=== PATIENT | female | born 1995 | race Two or more races ===

== ENCOUNTER 2017-02-05 10:48 | Emergency (ER) | payer MEDICAID ==
[~2017-02-05] VITALS: Ht 157.5 cm; Wt 74.8 kg
[2017-02-05 10:58] VITALS: BP 107/49
[2017-02-05 11:32] LABS: Basophils # (auto) 0 uL; CONDITION Y; Eosinophils # (auto) 0 uL; Eosinophils % (auto) 0.3 % (0.0-7.0); Hematocrit 42.9 % (36.0-46.0); Hemoglobin 14.2 g/dL (12.2-16.2); Lymphocytes % (auto) 13.2 % (10.0-50.0); Mean Corpuscular Hemoglobin 28.5 pg (28.0-32.0); Mean Corpuscular Hgb Conc. 33.1 g/dL (32.0-36.0); Mean Corpuscular Volume 86.2 fL (80.0-100.0); Mean Platelet Volume 9.2 fL (7.4-10.4); Monocytes # (auto) 0.3 uL; Monocytes % (auto) 2.1 % (0.0-12.0); Neutrophils # (auto) 13.1 uL; Neutrophils % (auto) 84.4 % (37.0-80.0); Platelet Count (auto) 315 10^3/uL (140-450); Red Cell Distribution Width 15.7 % (11.6-16.0); White Blood Cell 15.5 10^3/uL (4.4-10.8)
[2017-02-05 11:53] LABS: Urine Bilirubin Negative (Negative); Urine Blood 1+ /uL (Negative); Urine Color Yellow (Yellow); Urine Glucose TRACE mg/dL (Normal); Urine Ketone Negative (Negative); Urine Nitrite Negative (Negative); Urine RBC 2 /hpf (0 - 4); Urine Squamous Epithelial Cell FEW /hpf (<5); Urine Urobilinogen Normal (Negative)
[2017-02-05 12:01] LABS: Albumin 4.2 g/dL (3.4-5.0); BUN/Creatinine Ratio 9.5; Bilirubin, Total 0.4 mg/dL (0.2-1.0); Calcium 8.8 mg/dL (8.5-10.1); Potassium 4.3 mmol/L (3.5-5.1); Total Protein 9.2 g/dL (6.4-8.2)
== END 2017-02-05 12:17 | disposition home or self-care (01) ==
LOC: ER 10:50
DX: J02.9 Acute pharyngitis, unspecified (principal); N39.0 Urinary tract infection, site not specified; Z90.89 Acquired absence of other organs
CPT/HCPCS: 36415; 80053; 81001; 85025; 93005

== ENCOUNTER 2024-02-20 07:39 | Emergency (ER) | payer MEDICAID, OTHER ==
[~2024-02-20] VITALS: Ht 160 cm; Wt 79.3 kg
[2024-02-20 08:23] VITALS: BP 128/84; PULSE 98; RESP 18; TEMP 98.6; O2SAT 98
[2024-02-20] MEDS ORDERED: AZIT500T66 PO (09:13)
[2024-02-20] MEDS ORDERED: IBUP-1454 PO (09:13)
== END 2024-02-20 09:25 | disposition home or self-care (01) ==
LOC: ER 07:39
DX: J03.90 Acute tonsillitis, unspecified (principal); Z86.2 Personal history of diseases of the blood and blood-forming organs and certain disorders involving the immune mechanism; Z98.890 Other specified postprocedural states; Z79.899 Other long term (current) drug therapy

== ENCOUNTER 2025-03-19 08:15 | Emergency (ER) | payer MEDICAID ==
[~2025-03-19] VITALS: Ht 160 cm; Wt 73.5 kg
[~2025-03-19 08:15] MED LIST: AZIT500T66 PO; IBUP-1454 PO
--- NOTE | 2025-03-19 09:02 | ED.PDOC ---
History of Present Illness HPI Comments 30-year-old female presents to the ER with prior medical history anemia: Surgical history of appendectomy, and a chief complaint of nausea and vomiting and diarrhea. She reports on having nausea on Saturday and was able to nasal her food, patient had emesis on Saturday, patient had diarrhea yest , and patient currently feels weak. Denies chills, fever, SOB, CP. No other associated symptoms, modifiers, recent injuries or sick contacts present at this time. Chief Complaint: Nausea/Vomiting Time Seen by MD: 08:45 Primary Care Provider: NONE Reviewed Notes: Nurses Notes, Medications, Allergies Allergies: Coded Allergies: NO KNOWN ALLERGIES (Unverified , 08/22/15) Home Meds Active Scripts Ibuprofen (Ibuprofen) 600 Mg Tab, 1 TAB PO TID, #30 TAB Prov:GARIMA COLE 02/20/24 Azithromycin (Azithromycin) 500 Mg Tab, 1 TAB PO DAILY, #5 TAB Prov:GARIMA COLE 02/20/24 Information Source: Patient Mode of Arrival: Ambulatory Severity: Moderate Timing: Days Duration: Since onset, Days Prehospital treatment: None Past Medical History PAST MEDICAL HISTORY: Anemia Surgical History: Appendectomy, 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: No Pertinent 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 Family History Family History: Reviewed,noncontributory to illness, Unknown Social History Smoker: Unknown Alcohol: Unknown Drugs: Unknown Lives In: Home Constitutional: denies: chills, diaphoresis, fatigue, fever, malaise, sweats, weakness, others EENTM: denies: blurred vision, double vision, ear bleeding, ear discharge, ear drainage, ear pain, ear ringing, eye pain, eye redness, hearing loss, mouth pain, mouth swelling, nasal discharge, nose bleeding, nose congestion, nose pain, photophobia, tearing, throat pain, throat swelling, voice changes, others Respiratory: denies: cough, hemoptysis, orthopnea, SOB at rest, shortness of breath, SOB with excertion, stridor, wheezing, others Cardiovascular: denies: chest pain, dizzy spells, diaphoresis, Dyspnea on exertion, edema, irregular heart beat, left arm pain, lightheadedness, palpitations, PND, syncope, others Gastrointestinal: reports: diarrhea, nausea, vomiting; denies: abdomen distended, abdominal pain, blood streaked bowels, constipated, dysphagia, difficulty swallowing, hematemesis, melena, poor appetite, poor fluid intake, rectal bleeding, rectal pain, others Genitourinary: denies: abnormal vagina bleeding, burning, dyspareunia, dysuria, flank pain, frequency, hematuria, incontinence, pain, , vagina discharge, urgency, others Neurological: denies: dizziness, fainting, headache, left sided numbness, left sided weakness, numbness, paresthesia, pre-existing deficit, right sided numbness, right sided weakness, seizure, speech problems, tingling, tremors, weakness, others Musculoskeletal: denies: back pain, gout, joint pain, joint swelling, muscle pain, muscle stiffness, neck pain, others Integumetry: denies: bruises, change in color, change in hair/nails, dryness, laceration, lesions, lumps, rash, wounds, others Allergic/Immunocompromised: denies: Difficulty Healing, Frequent Infections, Hives, Itching, others Hematologic/Lymphatic: denies: anemia, blood clots, easy bleeding, easy bruising, swollen glands, others Endocrine: denies: excessive hunger, excessive sweating, excessive thirst, excessive urination, flushing, intolerance to cold, intolerance to heat, u nexplained weight gain, unexplained weight loss, others Psychiatric: denies: anxiety, bipolar disorder, depression, hopeless, panic disorder, schizophrenia, sleepless, suicidal, others All Other Systems: Reviewed and Negative Physical Exam Exam Comments Appears uncomfortable General Appearance: No Apparent Distress, Normal HEENT: Normal ENT Inspection, Pharynx Normal, TMs Normal Neck: Full Range of Motion, Non-Tender, Normal, Normal Inspection Respiratory: Chest Non-Tender, Lungs Clear, No Accessory Muscle Use, No Respiratory Distress, Normal Breath Sounds Cardiovascular: No Edema, No JVD, No Murmur, No Gallop, Normal Peripheral Pulses, Regular Rate/Rhythm Breast Exam: Deferred Gastrointestinal: No Organomegaly, Non Tender, No Pulsatile Mass, Normal Bowel Sounds, Soft Genitalia: Deferred Pelvic: Deferred Rectal: Deferred Extremities: No calf tenderness, Normal capillary refill, Normal inspection, Normal range of motion, Non-tender, No pedal edema Musculoskeletal : Apperance: Normal Neurologic: Alert, senior materials planner II-XII nml as Tested, No Motor Deficits, Normal Affect, Normal Mood, No Sensory Deficits Cerebellar Function: Normal Reflexes: Normal Skin: Dry, Normal Color, Warm Lymphatic: No Adenopathy Was a procedure done? Was a procedure done?: No Differential Dx Considerations may include: Gastroenteritis, viral syndrome X-Ray, Labs, Meds, VS Vital Signs Date Time Temp Pulse Resp B/P (MAP) Pulse Ox O2 Delivery O2 Flow Rate FiO2 03/19/25 09:26 98.1 94 17 126/75 (92) 97 98.1 03/19/25 09:24 96 17 97 Room Air* 0 21 03/19/25 08:16 97.8 90 16 123/83 97 97.8 Lab Test 03/19/25 11:00 03/19/25 09:46 03/19/25 09:00 Range/Units Urine Color Light-yellow Yellow Urine Clarity Hazy H Clear Urine pH 5.5 5.0-9.0 Urine Specific [place] 1.013 1.001-1.035 Urine Protein Negative Negative Urine Ketones 1+ H Negative Urine Blood 1+ H Negative /uL Urine Nitrite Negative Negative Urine Bilirubin Negative Negative Urine Urobilinogen Normal Negative mg/dL Urine Leukocyte Esterase Negative Negative /uL Urine RBC 7 0 - 4 /hpf Urine Microscopic WBC 5 0-5 /HPF Urine Squamous Epithelial Cells Few <5 /hpf Urine Bacteria Few H None Seen /hpf Urine Mucus Few None Seen Urine Glucose Normal Normal mg/dL Influenza Type A Antigen Negative Negative Influenza Type B Antigen Negative Negative SARS-CoV-2 Antigen (Rapid) Negative NEGATIVE White Blood Count 11.1 H 4.4-10.8 10^3/uL Red Blood Count 4.67 4.0-5.20 10^6/uL Hemoglobin 13.6 12.2-16.2 g/dL Hematocrit 40.3 36.0-46.0 % Mean Corpuscular Volume 86.4 80.0-100.0 fL Mean Corpuscular Hemoglobin 29.1 28.0-32.0 pg Mean Corpuscular Hemoglobin Concent 33.7 32.0-36.0 g/dL Red Cell Distribution Width 13.9 11.8-14.3 % Platelet Count 308 140-450 10^3/uL Mean Platelet Volume 7.6 6.9-10.8 fL Neutrophils (%) (Auto) 75.0 37.0-80.0 % Lymphocytes (%) (Auto) 16.5 10.0-50.0 % Monocytes (%) (Auto) 6.3 0.0-12.0 % Eosinophils (%) (Auto) 1.8 0.0-7.0 % Basophils (%) (Auto) 0.4 0.0-2.0 % Neutrophils # (Auto) 8.3 1.6-8.6 10 ^3/uL Lymphocytes # (Auto) 1.8 0.4-5.4 10 ^3/uL Monocytes # (Auto) 0.7 0-1.3 10 ^3/uL Eosinophils # (Auto) 0.2 0-0.8 10 ^3/uL Basophils # (Auto) 0 0-0.2 10 ^3/uL Nucleated Red Blood Cells 0.0 % Sodium Level 140 136-145 mmol/L Potassium Level 3.6 3.5-5.1 mmol/L Chloride Level 109 H 98-107 mmol/L Carbon Dioxide Level 25 20-31 mmol/L Anion Gap 6 5-15 Blood Urea Nitrogen 5 L 9-23 mg/dL Creatinine 0.63 0.550-1.02 mg/dL Glomerular Filtration Rate Calc 121 >90 mL/min BUN/Creatinine Ratio 7.9 L 10.0-20.0 Serum Glucose 87 74-106 mg/dL Calcium Level 8.9 8.7-10.4 mg/dL Current Medications Medications (Trade) Dose Ordered Sig/Cecilia Route Start Time Stop Time Status Last Admin Sodium Chloride 1,000 ml @ 1,000 mls/hr Q1H ONCE IV 03/19/25 09:00 03/19/25 09:59 DC 03/19/25 09:38 Ondansetron HCl (Zofran) 4 mg ONCE ONCE IV 03/19/25 09:00 03/19/25 09:01 DC 03/19/25 09:39 Ketorolac Tromethamine (Toradol Injection) 15 mg ONCE ONCE IV 03/19/25 09:00 03/19/25 09:01 DC 03/19/25 09:38 Time of 1ST Reevaluation: 09:15 Reevaluation 1ST: Unchanged Patient Education/Counseling: Diagnosis, Treatment, Prognosis Family Education/Counseling: No Family Present SEPSIS Sepsis Screen Date sepsis recognized/suspect: Mar 19, 2025 Time Sepsis recognized/suspect: 804 Recent Procedure: No On Antibiotic Therapy: No Respiratory Rate >20: No Heart Rate >90: No Temp<36 C (96.8 F) or >38.3 C: No SBP <90 or MAP <65 mmHG: No New Acute Mental Status Change: No Is the patient on CPAP, BIPAP,: No Vital Signs Date Time Temp Pulse Resp B/P (MAP) Pulse Ox O2 Delivery O2 Flow Rate FiO2 03/19/25 09:26 98.1 94 17 126/75 (92) 97 98.1 03/19/25 09:24 96 17 97 Room Air* 0 21 03/19/25 08:16 97.8 90 16 123/83 97 97.8 Laboratory Tests Test 03/19/25 09:00 White Blood Count 11.1 10^3/uL (4.4-10.8) H Medications Medications Dose Ordered Sig/Cecilia Route Start Time Stop Time Status Last Admin Dose Admin Ketorolac Tromethamine 15 mg ONCE ONCE IV 03/19/25 09:00 03/19/25 09:01 DC 03/19/25 09:38 Ondansetron HCl 4 mg ONCE ONCE IV 03/19/25 09:00 03/19/25 09:01 DC 03/19/25 09:39 Sodium Chloride 1,000 ml @ 1,000 mls/hr Q1H ONCE IV 03/19/25 09:00 03/19/25 09:59 DC 03/19/25 09:38 Departure 1 Departure Time of Disposition: 11:42 (Patient with gastroenteritis. We will discharge patient with outpatient follow up) Impression: Primary Impression: Viral syndrome Additional Impression: Gastroenteritis Disposition: 01 HOME / SELF CARE / HOMELESS Condition: Stable Additional Instructions: You likely have gastroenteritis. It is important to stay well hydrated and well rested. This usually resolves within 2 weeks. If your symptoms worsen or you have any other concerns please return to the ER. Discharged With: Self Critical Care Note Critical Care Time?: No Stability Stability form required: No I personally scribed for EARL WEBSTER MD ([email or web address]) on 03/19/25 at 09:02. Elec tronically submitted by Gurpreet Wiley ([email or web address]). EARL WEBSTER MD Mar 19, 2025 09:02
[2025-03-19 09:24] VITALS: PULSE 96; RESP 17; O2SAT 97
[2025-03-19 09:24] LABS: Hematocrit 40.3 % (36.0-46.0); Hemoglobin 13.6 g/dL (12.2-16.2); Mean Corpuscular Hemoglobin 29.1 pg (28.0-32.0); Mean Corpuscular Volume 86.4 fL (80.0-100.0); Nucleated Red Blood Cells % 0.0 %
[2025-03-19 09:26] VITALS: BP 126/75; PULSE 94; RESP 17; TEMP 98.1; O2SAT 97
[2025-03-19] MEDS: KETOROLAC TROMETH 30 MG/ML 1ML VIAL IV ONE (09:38)
[2025-03-19] MEDS: SODIUM CHLORIDE 0.9% 1,000 ML IV ONE (09:38)
[2025-03-19] MEDS: ONDANSETRON HCL 4 MG/2 ML VIAL IV ONE (09:39)
[2025-03-19 09:44] LABS: Potassium 3.6 mmol/L (3.5-5.1); Sodium 140 mmol/L (136-145)
[2025-03-19 09:45] LABS: Anion Gap 6 (5-15); Carbon Dioxide 25 mmol/L (20-31)
[2025-03-19 09:46] LABS: Calcium 8.9 mg/dL (8.7-10.4)
[2025-03-19 09:50] LABS: Chloride 109 mmol/L (98-107)
[2025-03-19 09:51] LABS: BUN/Creatinine Ratio 7.9 (10.0-20.0); Glucose 87 mg/dL (74-106)
[2025-03-19 09:52] LABS: Blood Urea Nitrogen 5 mg/dL (9-23)
[2025-03-19 10:24] LABS: COVID19 ANTIGEN SOFIA FIA NEGATIVE (NEGATIVE)
[2025-03-19 11:38] LABS: Urine Protein, UAD Negative (Negative)
== END 2025-03-19 11:46 | disposition home or self-care (01) ==
LOC: ER 08:15
DX: B34.9 Viral infection, unspecified (principal); K52.9 Noninfective gastroenteritis and colitis, unspecified; F17.200 Nicotine dependence, unspecified, uncomplicated; D64.9 Anemia, unspecified; Z90.49 Acquired absence of other specified parts of digestive tract; Z98.890 Other specified postprocedural states; Z20.822 Contact with and (suspected) exposure to COVID-19
CPT/HCPCS: 36415; 80048; 81001; 85025; 87426; 87804; 96361; 96374; 96375; 99284; J1885; J2405; J7030

== ENCOUNTER 2025-03-26 08:05 | Emergency (ER) | payer MEDICAID ==
[~2025-03-26] VITALS: Ht 160 cm; Wt 74.8 kg
--- NOTE | 2025-03-26 08:31 | ED.PDOC ---
GI ASSESSMENT HPI Comments 30 y.o female presents to the ED for a chief complaint of diffused abdominal pain associated with distension, nausea and vomiting. Patient initially reports presenting with nausea and vomiting x 12 days ago which she then developed diarrhea and went to the ED about 6 days ago. Patient then was given IV fluids had blood work done but eloped before getting her results. She followed up with her PCP who was able to access her chart, states she was diagnosed with gastroenteritis and was prescribed Zofran and an antidiarrheal. She felt better after taking the medication however a couple days ago began experiencing nausea, vomiting, diarrhea and increased abdominal distention. No hematemesis, bloody stool, fever, chills, back pain, vaginal bleeding, dysuria reported. Chief Complaint: Abdominal Pain Time Seen by MD: 08:21 Primary Care Provider: NONE Reviewed Notes: Nurses Notes, Medications, Allergies Allergies: Coded Allergies: NO KNOWN ALLERGIES (Unverified , 08/22/15) Home Meds Active Scripts Metronidazole (Flagyl) 500 Mg Tab, 1 TAB PO TID for 5 Days, #15 TAB Prov:MARYBEL MARTINES MD 03/26/25 Ibuprofen (Ibuprofen) 600 Mg Tab, 1 TAB PO TID, #30 TAB Prov:AGRIMA COLE 02/20/24 Azithromycin (Azithromycin) 500 Mg Tab, 1 TAB PO DAILY, #5 TAB Prov:GARIMA COLE 02/20/24 Information Source: Patient Mode of Arrival: Ambulatory Timing: Days (12) Duration: Since onset Quality: Sharp Vomitus: Hard Stool: Loose Severity: Moderate Recent: None Recent Hx of: Other (gastroenteritis ) Pain Location: Diffuse Modifying Factors: Nothing Associated sign and symptoms: Nausea, Vomiting, Diarrhea, Abdominal Pain Past Medical History PAST MEDICAL HISTORY: Anemia Surgical History: Appendectomy, , Tubal 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 History Family History Family History: Reviewed,noncontributory to illness, Unknown Social History Smoker: Non-Smoker Alcohol: Denies ETOH Use Drugs: Denies Drug Use Lives In: Home Constitutional: denies: chills, diaphoresis, fatigue, fever, malaise, sweats, weakness, others EENTM: denies: blurred vision, double vision, ear bleeding, ear discharge, ear drainage, ear pain, ear ringing, eye pain, eye redness, hearing loss, mouth pain, mouth swelling, nasal discharge, nose bleeding, nose congestion, nose pain, photophobia, tearing, throat pain, throat swelling, voice changes, others Respiratory: denies: cough, hemoptysis, orthopnea, SOB at rest, shortness of breath, SOB with excertion, stridor, wheezing, others Cardiovascular: denies: chest pain, dizzy spells, diaphoresis, Dyspnea on exertion, edema, irregular heart beat, left arm pain, lightheadedness, palpitations, PND, syncope, others Gastrointestinal: reports: abdomen distended, abdominal pain, diarrhea, nausea, vomiting; denies: blood streaked bowels, constipated, dysphagia, difficulty swallowing, hematemesis, melena, poor appetite, poor fluid intake, rectal bleeding, rectal pain, others Genitourinary: denies: abnormal vagina bleeding, burning, dyspareunia, dysuria, flank pain, frequency, hematuria, incontinence, pain, , vagina discharge, urgency, others Neurological: denies: dizziness, fainting, headache, left sided numbness, left sided weakness, numbness, paresthesia, pre-existing deficit, right sided num bness, right sided weakness, seizure, speech problems, tingling, tremors, weakness, others Musculoskeletal: denies: back pain, gout, joint pain, joint swelling, muscle pain, muscle stiffness, neck pain, others Integumetry: denies: bruises, change in color, change in hair/nails, dryness, laceration, lesions, lumps, rash, wounds, others Allergic/Immunocompromised: denies: Difficulty Healing, Frequent Infections, Hives, Itching, others Hematologic/Lymphatic: denies: anemia, blood clots, easy bleeding, easy bruising, swollen glands, others Endocrine: denies: excessive hunger, excessive sweating, excessive thirst, excessive urination, flushing, intolerance to cold, intolerance to heat, unexplained weight gain, unexplained weight loss, others Psychiatric: denies: anxiety, bipolar disorder, depression, hopeless, panic disorder, schizophrenia, sleepless, suicidal, others All Other Systems: Reviewed and Negative Physical Exam General Appearance: Moderate Distress HEENT: Normal ENT Inspection, Pharynx Normal, TMs Normal Neck: Full Range of Motion, Non-Tender, Normal, Normal Inspection Respiratory: Chest Non-Tender, Lungs Clear, No Accessory Muscle Use, No Respiratory Distress, Normal Breath Sounds Cardiovascular: No Edema, No JVD, No Murmur, No Gallop, Normal Peripheral Pulses, Regular Rate/Rhythm Breast Exam: Deferred Gastrointestinal: No Organomegaly, Non Tender, No Pulsatile Mass, Normal Bowel Sounds, Soft Genitalia: Deferred Pelvic: Deferred Rectal: Deferred Extremities: No calf tenderness, Normal capillary refill, Normal inspection, Normal range of motion, Non-tender, No pedal edema Musculoskeletal : Apperance: Normal Neurologic: Alert, tailer off II-XII nml as Tested, No Motor Deficits, Normal Affect, Normal Mood, No Sensory Deficits Cerebellar Function: Normal Reflexes: Normal Skin: Dry, Normal Color, Warm Peripheral Pulses: 3+ Radial (R), 3+ Radial (L) Lymphatic: No Adenopathy Was a procedure done? Was a procedure done?: No GI differential Dx Differential Diagnosis: Constipation, Diverticular disease, Esophagitis, Gastritis/PUD, Gastroenteritis, Electrolyte Imbalance, Bacterial, Parasitic, Viral X-Ray, Labs, Meds, VS Vital Signs Date Time Temp Pulse Resp B/P (MAP) Pulse Ox O2 Delivery O2 Flow Rate FiO2 03/26/25 08:07 97.9 92 16 120/90 95 97.9 Patient alert. Came in because abdominal bloating. She was seen here a week ago for similar symptom. Vitals stable. Answering questions. Ambulating. Abdomen is soft nontender. CT scan of the abdomen reviewed does show enteritis. Reviewed her previous visit. She was given prescription of Flagyl antibiotic. Explained to the patient. Was told to follow up with her primary care physician. Was told to come back if there is any problem. Time of 1ST Reevaluation: 09:00 Reevaluation 1ST: Unchanged Patient Education/Counseling: Diagnosis, Treatment, Prognosis Family Education/Counseling: No Family Present SEPSIS Sepsis Screen Date sepsis recognized/suspect: Mar 26, 2025 Time Sepsis recognized/suspect: 0808 Recent Procedure: No On Antibiotic Therapy: No Respiratory Rate >20: No Heart Rate >90: Yes Temp<36 C (96.8 F) or >38.3 C: No SBP <90 or MAP <65 mmHG: No New Acute Mental Status Change: No Is the patient on CPAP, BIPAP,: No Physician Orders Ct Ab Pel Wo Con-No Oral Or Iv (03/26/25 08:25) Vital Signs Date Time Temp Pulse Resp B/P (MAP) Pulse Ox O2 Delivery O2 Flow Rate FiO2 03/26/25 08:07 97.9 92 16 120/90 95 97.9 Departure 1 Departure Time of Disposition: 08:33 Impression: Primary Impression: Gastroenteritis Disposition: 01 HOME / SELF CARE / HOMELESS Condition: Good e-Prescriptions Metronidazole (Flagyl) 500 Mg Tab 1 TAB PO TID for 5 Days, #15 TAB Prov: MARYBEL MARTINES MD 03/26/25 Discharged With: Self Critical Care Note Critical Care Time?: No Stability Stability form required: No I personally scribed for MARYBEL MARTINES MD ([email or web address]) on 03/26/25 at 08:30. Electronically submitted by Evangelina Platt ([facility]). MARYBEL MARTINES MD Mar 26, 2025 08:30
--- NOTE | 2025-03-26 09:06 | DVH ---
CLINICAL HISTORY: colitis TECHNIQUE: CT of the abdomen and pelvis was performed without IV contrast. This exam was performed ac cording to our departmental dose optimization program. Up-to-date CT equipment and radiation dose red uction techniques are utilized as appropriate. CTDI 8.6 DLP 451 COMPARISON: None FINDINGS: Abdomen/Pelvis: The spleen, pancreas, adrenal glands, kidneys, gallbladder, uterus, add bladder are unremarkable. The re is borderline diffuse hepatic steatosis. The abdominal aorta is normal in course and caliber. There are no significant atherosclerotic calcifi cations. There is no free intraperitoneal air or fluid. There is no enlarged abdominal pelvic lymph node. There is no bowel wall thickening or dilatation. The appendix is not seen with certainty. There is no focal inflammatory process in its expected location. There are fluid filled loops of small bowel. Other: The imaged lower thorax is unremarkable. No acute osseous abnormality is evident. Impression: No acute noncontrast CT abnormality in the abdomen or pelvis. Fluid filled small bowel, which is a nonspecific finding, but can be seen in the setting of an enteri tis.
[2025-03-26] MEDS ORDERED: METR-344 PO (09:45)
[2025-03-26 10:05] VITALS: BP 109/81; PULSE 99; RESP 18; TEMP 98; O2SAT 97
== END 2025-03-26 10:12 | disposition home or self-care (01) ==
LOC: ER 08:07
DX: K52.9 Noninfective gastroenteritis and colitis, unspecified (principal); Z98.51 Tubal ligation status; Z79.1 Long term (current) use of non-steroidal anti-inflammatories (NSAID); Z90.49 Acquired absence of other specified parts of digestive tract; Z79.899 Other long term (current) drug therapy
CPT/HCPCS: 74176

== ENCOUNTER 2025-04-29 17:36 | Emergency (ER) | payer MEDICAID ==
[~2025-04-29] VITALS: Ht 160 cm; Wt 71.7 kg
[~2025-04-29 17:36] MED LIST changes: +METR-344 PO
--- NOTE | 2025-04-29 18:37 | ED.PDOC ---
GI ASSESSMENT HPI Comments Margarita Parnell is a 30-year-old female with past medical history of colitis. The patient came to the ED with chief complain of 2 days of vomit, #3 of gastric fluid and food particles, associated with chills, nausea, bloating, dizziness, malaise and, watery diarrhea > #4, yellowish, no foul smell or blood one day ago. On detailed questioning, the patient reports this is the 3rd time of the episode, she was at [facility] one month ago for similar complaint, she reports was prescribed Zofran and Flagil and symptoms improved, she was referred to GI, but patient felt better and did not follow up with specialist. Today, the patient started complaining of epigastric pain /, with no radiation, cramp- like associate with worsen vomit and diarrhea this prompted her visit to the ED. The patient denies fever, hematochezia, hematemesis, sick contacts, recent travels, food out of her regular diet or other symptoms. In the ED BP: 120/87mmhg, HR: 88bpm. The patient will be further assessed. Chief Complaint: Nausea/Vomiting Time Seen by MD: 17:57 Primary Care Provider: NONE Reviewed Notes: Nurses Notes, Medications, Allergies Allergies: Coded Allergies: NO KNOWN ALLERGIES (Unverified , 08/22/15) Home Meds Active Scripts Metronidazole (Flagyl) 500 Mg Tab, 1 TAB PO TID for 5 Days, #15 TAB Prov:MARYBEL MARTINES MD 03/26/25 Ibuprofen (Ibuprofen) 600 Mg Tab, 1 TAB PO TID, #30 TAB Prov:GARIMA COLE 02/20/24 Azithromycin (Azithromycin) 500 Mg Tab, 1 TAB PO DAILY, #5 TAB Prov:GARIMA COLE 02/20/24 Information Source: Patient Mode of Arrival: Ambulatory Timing: Days Duration: Since onset Past Medical History PAST MEDICAL HISTORY: Anemia Past Medical History (Other): Colitis Surgical History: Appendectomy, , Tubal Ligation AUTO STRIPER History: No Pertinent AUTO STRIPER History 3 Para 3 AB 0 LMP 04/08/25 Family History Family History: Reviewed,noncontributory to illness, Unknown Social History Smoker: Non-Smoker Alcohol: Denies ETOH Use Drugs: Denies Drug Use Lives In: Home Constitutional: reports: chills, malaise; denies: diaphoresis, fatigue, fever, sweats, weakness, others EENTM: denies: blurred vision, double vision, ear bleeding, ear discharge, ear drainage, ear pain, ear ringing, eye pain, eye redness, hearing loss, mouth pain, mouth swelling, nasal discharge, nose bleeding, nose congestion, nose pain, photophobia, tearing, throat pain, throat swelling, voice changes, others Respiratory: denies: cough, hemoptysis, orthopnea, SOB at rest, shortness of breath, SOB with excertion, stridor, wheezing, others Cardiovascular: reports: palpitations; denies: chest pain, dizzy spells, diaphoresis, Dyspnea on exertion, edema, irregular heart beat, left arm pain, lightheadedness, PND, syncope, others Gastrointestinal: reports: abdominal pain, diarrhea, nausea, vomiting; denies: abdomen distended, blood streaked bowels, constipated, dysphagia, difficulty swallowing, hematemesis, melena, poor appetite, poor fluid intake, rectal bleeding, rectal pain, others Genitourinary: denies: abnormal vagina bleeding, burning, dyspareunia, dysuria, flank pain, frequency, hematuria, incontinence, pain, , vagina discharge, urgency, others Neurological: reports: dizziness; denies: fainting, headache, left sided numbness, left sided weakness, numbness, paresthesia, pre-existing deficit, right sided numbness, right sided weakness, seizure, speech problems, tingling, tremors, weakness, others Musculoskeletal: denies: back pain, gout, joint pain, joint swelling, muscle pain, muscle stiffness, neck pain, others Integumetry: denies: bruises, change in color, change in hair/nails, dryness, laceration, lesions, lumps, rash, wounds, others Allergic/Immunocompromised: denies: Difficulty Healing, Frequent Infections, Hives, Itching, others Hematologic/Lymphatic: denies: anemia, blood clots, easy bleeding, easy bruising, swollen glands, others Endocrine: denies: excessive hunger, excessive sweating, excessive thirst, excessive urination, flushing, intolerance to cold, intolerance to heat, unexplained weight gain, unexplained weight loss, others Psychiatric: denies: anxiety, bipolar disorder, depression, hopeless, panic disorder, schizophrenia, sleepless, suicidal, others Physical Exam Exam Comments Alert, oriented x3. General Appearance: Mild Distress HEENT: Normal ENT Inspection, Pharynx Normal, TMs Normal Neck: Full Range of Motion, Non-Tender, Normal, Normal Inspection Respiratory: Chest Non-Tender, Lungs Clear, No Accessory Muscle Use, No Respiratory Distress, Normal Breath Sounds Cardiovascular: No Edema, No JVD, No Murmur, No Gallop, Normal Peripheral Pulses, Regular Rate/Rhythm Breast Exam: Deferred Gastrointestinal: No Organomegaly, No Pulsatile Mass, Soft, Other (Flat, soft, Increased bowel sounds, mild tendernes on the epigastric area. ) Genitalia: Deferred Pelvic: Deferred Rectal: Deferred Extremities: No calf tenderness, Normal capillary refill, Normal inspection, Normal range of motion, Non-tender, No pedal edema Musculoskeletal : Apperance: Normal Neurologic: Alert, fur blowing machine attendant II-XII nml as Tested, No Motor Deficits, Normal Affect, Normal Mood, No Sensory Deficits Cerebellar Function: Normal Reflexes: Normal Skin: Dry, Normal Color, Warm Lymphatic: No Adenopathy Was a procedure done? Was a procedure done?: No GI differential Dx Differential Diagnosis: Cholecystitis, Gastritis/PUD, Gastroenteritis, Pancreatitis, Electrolyte Imbalance, Parasitic, Viral Other Differential Diagnosis #Enteritis X-Ray, Labs, Meds, VS Vital Signs Date Time Temp Pulse Resp B/P (MAP) Pulse Ox O2 Delivery O2 Flow Rate FiO2 04/29/25 19:24 97 Room Air* 0 21 04/29/25 19:23 97.6 83 18 110/70 (83) 97 97.6 04/29/25 17:40 97.0 88 18 120/87 98 97.0 Lab Test 04/29/25 19:36 04/29/25 18:46 Range/Units Urine Color Yellow Yellow Urine Clarity Turbid H Clear Urine pH 6.5 5.0-9.0 Urine Specific [place] 1.030 1.001-1.035 Urine Protein Trace H Negative Urine Ketones Trace Negative Urine Blood Negative Negative /uL Urine Nitrite Negative Negative Urine Bilirubin Negative Negative Urine Urobilinogen Normal Negative mg/dL Urine Leukocyte Esterase Negative Negative /uL Urine RBC <1 0 - 4 /hpf Urine Microscopic WBC 2 0-5 /HPF Urine Squamous Epithelial Cells Mod <5 /hpf Urine Bacteria None seen None Seen /hpf Urine Mucus Few None Seen Urine Glucose Normal Normal mg/dL Urine Test Negative Negative Stool for White Cells None seen White Blood Count 11.2 H 4.4-10.8 10^3/uL Red Blood Count 4.69 4.0-5.20 10^6/uL Hemoglobin 13.7 12.2-16.2 g/dL Hematocrit 41.2 36.0-46.0 % Mean Corpuscular Volume 87.7 80.0-100.0 fL Mean Corpuscular Hemoglobin 29.1 28.0-32.0 pg Mean Corpuscular Hemoglobin Concent 33.2 32.0-36.0 g/dL Red Cell Distribution Width 14.8 H 11.8-14.3 % Platelet Count 337 140-450 10^3/uL Mean Platelet Volume 7.8 6.9-10.8 fL Neutrophils (%) (Auto) 74.1 37.0-80.0 % Lymphocytes (%) (Auto) 20.0 10.0-50.0 % Monocytes (%) (Auto) 4.3 0.0-12.0 % Eosinophils (%) (Auto) 1.0 0.0-7.0 % Basophils (%) (Auto) 0.6 0.0-2.0 % Neutrophils # (Auto) 8.3 1.6-8.6 10 ^3/uL Lymphocytes # (Auto) 2.2 0.4-5.4 10 ^3/uL Monocytes # (Auto) 0.5 0-1.3 10 ^3/uL Eosinophils # (Auto) 0.1 0-0.8 10 ^3/uL Basophils # (Auto) 0.1 0-0.2 10 ^3/uL Nucleated Red Blood Cells 0.0 % Sodium Level 137 136-145 mmol/L Potassium Level 4.1 3.5-5.1 mmol/L Chloride Level 101 98-107 mmol/L Carbon Dioxide Level 27 20-31 mmol/L Anion Gap 9 5-15 Blood Urea Nitrogen 12 9-23 mg/dL Creatinine 0.63 0.550-1.02 mg/dL Glomerular Filtration Rate Calc 121 >90 mL/min BUN/Creatinine Ratio 19.0 10.0-20.0 Serum Glucose 88 74-106 mg/dL Calcium Level 9.2 8.7-10.4 mg/dL Total Bilirubin 0.4 0.2-1.0 mg/dL Aspartate Amino Transferase (AST) 33 13-40 U/L Alanine Aminotransferase (ALT) 18 7-40 U/L Alkaline Phosphatase 99 46-116 U/L Total Protein 8.3 H 5.7-8.2 g/dL Albumin 4.6 3.2-4.8 g/dL Lipase 44 12-53 U/L Thyroid Stimulating Hormone (TSH) 0.12 L 0.55-4.78 uIU/mL Free Thyroxine (T4) Calculated 1.18 0.89-1.76 ng/dL Total Triiodothyronine (TT3) 0.93 0.60-1.81 ng/mL Current Medications Medications (Trade) Dose Ordered Sig/Cecilia Route Start Time Stop Time Status Last Admin Sodium Chloride 1,000 ml @ 1,000 mls/hr Q1H ONCE IV 04/29/25 18:15 04/29/25 19:14 DC 04/29/25 19:23 Pantoprazole Sodium (Protonix) 40 mg ONCE ONCE IV 04/29/25 18:15 04/29/25 18:31 DC 04/29/25 19:23 Ondansetron HCl (Zofran) 4 mg ONCE ONCE IV 04/29/25 18:15 04/29/25 18:31 DC 04/29/25 19:23 X-Ray, Labs, Meds, VS Comment 19:48 The patient was re-evaluated VS: BP: 110/70mmHg, HR: 83bpm Nausea and vomit has improved after antiemetics. CBC: WBC: 11.2x10e3/ul CMP: Unremarkable, Lipase: 44 UA: Nitrites and esterase are negative, urine WBC 2. Stool WBC is pending. CT abd/pel is still pending. We will continue monitoring. Time of 1ST Reevaluation: 19:48 Reevaluation 1ST: Improved Patient Education/Counseling: Diagnosis, Treatment, Prognosis, Need For Follow Up Family Education/Counseling: Diagnosis, Treatment, Prognosis, Need For Follow Up SEPSIS Sepsis Screen Date sepsis recognized/suspect: Apr 29, 2025 Time Sepsis recognized/suspect: 1741 Recent Procedure: No On Antibiotic Therapy: No Respiratory Rate >20: No Heart Rate >90: No Temp<36 C (96.8 F) or >38.3 C: No SBP <90 or MAP <65 mmHG: No New Acute Mental Status Change: No Is the patient on CPAP, BIPAP,: No Physician Orders Ova & Parasite Exam (04/29/25 18:15) Abdomen Without Contrast (04/29/25 18:38) Vital Signs Date Time Temp Pulse Resp B/P (MAP) Pulse Ox O2 Delivery O2 Flow Rate FiO2 04/29/25 19:24 97 Room Air* 0 21 04/29/25 19:23 97.6 83 18 110/70 (83) 97 97.6 04/29/25 17:40 97.0 88 18 120/87 98 97.0 Laboratory Tests Test 04/29/25 18:46 White Blood Count 11.2 10^3/uL (4.4-10.8) H Departure 1 Departure Time of Disposition: 00:00 Impression: Primary Impression: Gastroenteritis Disposition: 01 HOME / SELF CARE / HOMELESS Condition: Good Comments Low TSH, normal T3 and T4 WBC 11, unremarkable CMP Stool for WBC negative Lipase unremarkable Counseled patient regarding gluten free diet and lactose-free diet Goals of care discussed with the patient > 35 min. Discussed plan of care with Dr. Richey Code status: Full code PCP: Plan discussed with: Patient, the patient agrees with the plan. Attached is a CT scan report: PROCEDURE(s): ABD2C - ABDOMEN WITHOUT CONTRAST REASON: Abdominal pain ORDER NUMBER(s): [id number], ACCESSION NUMBER(s): [id number] Procedure: CT ABDOMEN WITHOUT CONTRAST Study Date and Requested Time: 04/29/2025 07:50 PM History: Abdominal pain Comparison: 03/26/2025 Dose: CTDI: 8.61 mGy DLP: 453.26 mGycm Technique: Multiplanar images obtained through the abdomen and pelvis without contrast Findings: The lung bases are clear. Partially visualized heart is unremarkable. Mild hepatomegaly. Otherwise, liver, spleen, gallbladder, pancreas and adrenal glands unremarkable. Kidneys and ureters unremarkable. Limited evaluation of the urinary bladder due to decompressed state. Uterus and adnexa are unremarkable. [id number] distention of the stomach. Wall thickening of proximal to mid small bowel loops with a Small bowel loops Fluid-filled nondistended. Appendix is not definitely visualized. Large bowel is unremarkable. No evidence of intraperitoneal free air or free fluid. No evidence of aortic aneurysm. No significant lymphadenopathy. The soft tissues unremarkable. No evidence of acute osseous abnormalities. Sclerotic focus of the Left proximal femur which may represent a bone islands/blastic lesion. Impression: Wall thickening of proximal to mid small bowel loops with the small bowel is fluid-filled and nondistended. Correlate for enteritis. Critical Care Note Critical Care Time?: No Stability Stability form required: No Heart Score Heart Score: Heart Score Response (Comments) Value History N/A 0 EKG N/A 0 Age N/A 0 Risk Factors N/A 0 Troponin N/A 0 Total 0 KULWANT MARC RESIDENT Apr 29, 2025 18:37 CHERELLE ANN RESIDENT Apr 30, 2025 00:02
[2025-04-29 19:03] LABS: Hematocrit 41.2 % (36.0-46.0); Hemoglobin 13.7 g/dL (12.2-16.2); Mean Corpuscular Hemoglobin 29.1 pg (28.0-32.0); Mean Corpuscular Volume 87.7 fL (80.0-100.0); Nucleated Red Blood Cells % 0.0 %
[2025-04-29 19:18] LABS: Alanine Aminotransferase 18 U/L (7-40); Albumin 4.6 g/dL (3.2-4.8); Alkaline Phosphatase 99 U/L (46-116); Anion Gap 9 (5-15); BUN/Creatinine Ratio 19.0 (10.0-20.0); Blood Urea Nitrogen 12 mg/dL (9-23); Calcium 9.2 mg/dL (8.7-10.4); Carbon Dioxide 27 mmol/L (20-31); Chloride 101 mmol/L (98-107); Glucose 88 mg/dL (74-106); Potassium 4.1 mmol/L (3.5-5.1); Sodium 137 mmol/L (136-145)
[2025-04-29 19:19] LABS: Bilirubin, Total 0.4 mg/dL (0.2-1.0)
[2025-04-29 19:23] VITALS: BP 110/70; PULSE 83; RESP 18; TEMP 97.6
[2025-04-29] MEDS: SODIUM CHLORIDE 0.9% 1,000 ML IV ONE (19:23)
[2025-04-29] MEDS: PANTOPRAZOLE 40 MG/10 ML VIAL INJ IV ONE (19:23)
[2025-04-29] MEDS: ONDANSETRON HCL 4 MG/2 ML VIAL IV ONE (19:23)
[2025-04-29 19:24] VITALS: O2SAT 97
[2025-04-29 19:32] LABS: Total Protein 8.3 g/dL (5.7-8.2)
[2025-04-29 19:46] LABS: Urine Protein, UAD TRACE (Negative)
--- NOTE | 2025-04-29 20:32 | DVH ---
Procedure: CT ABDOMEN WITHOUT CONTRAST Study Date and Requested Time: 07:50 PM History: Abdominal pain Comparison: 03/26/2025 Dose: CTDI: 8.61 mGy DLP: 453.26 mGycm Technique: Multiplanar images obtained through the abdomen and pelvis without contrast Findings: The lung bases are clear. Partially visualized heart is unremarkable. Mild hepatomegaly. Otherwise, liver, spleen, gallbladder, pancreas and adrenal glands unremarkable. Kidneys and ureters unremarkable. Limited evaluation of the urinary bladder due to decompressed state . Uterus and adnexa are unremarkable. [id number] distention of the stomach. Wall thickening of proximal to mid small bowel loops with a Small bowel loops Fluid-filled nondistended. Appendix is not definitely visualized. Large bowel is unremarkable. No evidence of intraperitoneal free air or free fluid. No evidence of aortic aneurysm. No significant lymphadenopathy. The soft tissues unremarkable. No evidence of acute osseous abnormalities. Sclerotic focus of the Le ft proximal femur which may represent a bone islands/blastic lesion. Impression: Wall thickening of proximal to mid small bowel loops with the small bowel is fluid-filled and nondist ended. Correlate for enteritis.
[2025-04-29 22:10] LABS: Free T4 (Free Thyroxine) 1.18 ng/dL (0.89-1.76)
== END 2025-04-29 23:44 | disposition home or self-care (01) ==
LOC: ER 17:36
DX: K52.9 Noninfective gastroenteritis and colitis, unspecified (principal); J45.909 Unspecified asthma, uncomplicated; Z79.899 Other long term (current) drug therapy; Z98.51 Tubal ligation status; Z90.49 Acquired absence of other specified parts of digestive tract; Z79.1 Long term (current) use of non-steroidal anti-inflammatories (NSAID)
CPT/HCPCS: 36415; 74150; 80053; 81001; 81025; 83690; 84439; 84443; 84480; 85025; 85048; 96361; 96374; 96375; 99285; J2405; J2470; J7030